=== PATIENT | female | born 1980 | race Caucasian/White ===

== ENCOUNTER 2022-09-17 18:21 | Inpatient (IN) | payer MEDICAID, SELFPAY ==
[2022-09-17 18:22] VITALS: BP 149/111; PULSE 123; RESP 17; TEMP 36.4; O2SAT 99; BMI 34.2
--- NOTE | 2022-09-17 19:19 | EDS_ITS ---
HPI History of Present Illness Chief Complaint: Shortness of Breath Detail of Chief Complaint: Cough, shortness of breath, dyspnea on exertion URI symptoms Informant: patient and other (Nurse practitioner from urgent care) Onset/Context/Timing Onset: Weeks (Onset September 06, 2022) Context: Sudden Onset Timing: Continuous and Waxes and wanes Quality: My health gesturing, cough which is essentially nonproductive, dyspnea on e Location: Respiratory Current Severity: Moderate Maximum Severity: Severe Worsened by: Activity Relieved by: Nothing Associated Symptoms Associated Symptoms: Palpitations Narrative Narrative: Patient is a 42-year-old woman who is on no hormonal therapy with no history of PE or DVT who presents with rapid heart rate, cough, shortness of breath at rest and with activity. Her cough is essentially nonproductive. When she does produce sputum it is creamy white. She states she works at the [employer]. 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 She had a negative COVID test on September 14. She complains of mild headache. She denies photophobia, neck pain or neck stiffness. She denies ear pain or discharge from her ears. She denies change in voice. She denies chest discomfort. She denies leg pain, swelling discoloration. She has no risk She denies nausea, vomiting or diarrhea. She denies dysuria, frequency, urgency or hematuria. Prior similar symptoms: Yes Recent Illness/Hospitalization: Yes PFSH PFSH Medical History no medical history no medical history (Depression) Allergy/AdvReac Type Severity Reaction Status Date / Time acetaminophen [From Percocet] Allergy Itching Verified 09/17/22 18:22 lisinopril Allergy Rash Verified 09/17/22 18:22 oxycodone [From Percocet] Allergy Itching Verified 09/17/22 18:22 Social History (Updated 09/17/22 @ 19:[address] Reggie Hoffmann MD) household members: none Smoking Status: Current every day smoker tobacco type: cigarettes substance use type: does not use ROS ROS ED Constitutional Constitutional ED: Denies chills, fever(s), subjective or sweats Eyes Eyes: Denies blurry vision, change in vision or diplopia ENT ENT ED: Reports rhinorrhea; Denies ear pain or sore throat Cardiovascular Cardiovascular: Reports racing heartbeat; Denies chest pain, orthopnea, palpitations or paroxysmal nocturnal dyspnea Respiratory/Chest Respiratory/Chest: Reports cough, dyspnea and dyspnea on exertion; Denies orthopnea or paroxysmal nocturnal dyspnea Gastrointestinal Gastrointestinal: Denies abdominal pain, nausea or vomiting Genitourinary Genitourinary ED: Denies dysuria, hematuria or urinary frequency Musculoskeletal Musculoskeletal: Denies arthralgias, back pain, myalgias or neck pain Integumentary Denies abscess, Abrasions or rash Neurologic Neurologic: Reports headache(s) and weakness; Denies paresthesias Endocrine Endocrinology: Denies cold intolerance or heat intolerance Hematologic/Lymphatic Hematologic/Lymphatic: Reports systems reviewed and no addt'l complaints, except as documented EXAM Physical Exam Const Vital Signs: 09/17/22 18:22 09/17/22 20:51 09/17/22 20:56 Temperature 97.5 F L 98.2 F Temperature Source Temporal Temporal Pulse Rate 123 H 106 H Respiratory Rate 17 15 15 Blood Pressure 149/111 H 152/91 H Blood Pressure Mean 123 111 Pulse Ox 99 97 Oxygen Delivery Method Room Air Room Air 09/17/22 21:17 Temperature 98.5 F Temperature Source Temporal Pulse Rate 74 Respiratory Rate 15 Blood Pressure 147/103 H Blood Pressure Mean 117 Pulse Ox 99 Oxygen Delivery Method Room Air Positive well nourished, well developed and obese Constitutional Narrative: Patient is tachypneic at rest and breathing much more rapidly than 7 times times a minute. She does not appear well. General Appearance ED: well developed and pallor; Negative for cyanotic, diaphoretic or NAD Nutritional Appearance: obese HEENT Reports dry mucous membranes HEENT Narrative: Head is atraumatic normocephalic. TMs normal. Nares patent. Posterior pharynx out erythema or exudate. Uvula is midline. Mouth ED: Yes dry mucous membranes Mouth: dry mucous membranes Eyes PERRL and EOMs intact bilaterally General Eye ED: Negative for pale conjunctiva or scleral icterus Neck no lymphadenopathy, supple and no JVD Neck Narrative: Trachea is midline. There is no inspiratory inspiratory or expiratory stridor Chest Wall inspection of chest normal and palpation of chest normal Resp No normal respiratory effort and No clear to auscultation bilaterally Auscultation: rales bilateral base and wheezes expiratory wheezes and throughout Cardio regular rhythm, S1 normal heart sound, S2 normal heart sound and no murmurs Rate: tachycardic GI normal to inspection, nondistended, normoactive bowel sounds, non-tender, non- distended and no masses; Negative for hepatosplenomegaly Palpation: soft Back/Spine no CVA tenderness Cervical Spine: Negative for cervical spine tenderness Thoracic Spine / Upper Back: Negative for thoracic spinal tenderness Lumbar Spine / Lower Back: Negative for lumbar spinal tenderness Extremity normal to inspection General Extremety ED: Negative for edema or tenderness General Extremity: Negative for edema Neuro oriented x3, CN's II-XII intact bilaterally and no sensory deficits noted Sensorium / Orientation: alert Motor Exam: strength 5/5 throughout Psych mental status grossly normal Skin no rashes or lesions noted, no wounds and skin turgor normal General Skin Exam: pallor; Negative for elasticity normal or jaundice MDM MDM MDM Narrative Medical decision making narrative: Suspect this is due to respiratory infection. If patient's symptoms do not improve with treatment and D-dimer is elevated would consider CTA. The D-dimer may be elevated due to infectious process as well. Because of limited ICU beds we will treat her DKA with subcu insulin and IV fluids. History & Record Review Discussion w/independent historian: Patient and Other Additional record(s) reviewed:: Prior outpatient record ([facility] from [facility] were reviewed. Concern by practitioners PE.) Lab Data Attestation: I reviewed the patient's lab results. Lab results narrative: White count is elevated 17.2 thousand with shift. H&H is normal. Comprehensive metabolic panel reveals pseudohyponatremia with a sodium 128. Glucose is 457 with a CO2 of 13 and anion gap of 13. Creatinine slightly evaded 1.1. Patient's DKA. Serum ketone was obtained as well as assess and VBG. Lactate was normal at 1.2. Serum ketones are moderate. D-dimer is elevated. Suspect this is due to her pneumonia and infectious process and did not pursue CTA. UA is remarkable for glucose and ketones. There is no evidence of infection. Labs: Laboratory Results - last 24 hr 09/17/22 09/17/22 09/17/22 19:23 19:23 19: WBC 17.2 H RBC 5.36 Hgb 15.0 Hct 46.5 MCV 86.8 MCH 28.0 MCHC 32.3 RDW Std Deviation 41.1 RDW Coeff of Alcira 13.2 Plt Count 359 MPV 11.9 Immature Gran % (Auto) 2.600 H Neut % (Auto) 80.0 H Lymph % (Auto) 8.6 L [place] % (Auto) 7.7 Eos % (Auto) 0.2 Baso % (Auto) 0.9 Absolute Neuts (auto) 13.8 H Absolute Lymphs (auto) 1.48 Nucleated RBC % 0 D-Dimer Quant (PE/DVT) 1.39 H* Sodium 128 L Potassium 4.2 Chloride 102 Carbon Dioxide 13.0 L Anion Gap 13 BUN 18 Creatinine 1.10 H Estim Creat Clear Calc 64.79 Est GFR (MDRD) Af Amer 70 Est GFR (MDRD) Non-Af 58 L BUN/Creatinine Ratio 16.4 Glucose 457 H* Lactic Acid Calcium 9.7 Total Bilirubin 0.60 Direct Bilirubin 0.16 AST 5 L ALT 18 Alkaline Phosphatase 125 H Total Protein 8.4 H Albumin 3.2 Globulin 5.2 H Urine Color Urine Clarity Urine pH Ur Specific [place] Urine Protein Urine Glucose (UA) Urine Ketones Urine Occult Blood Urine Nitrite Urine Bilirubin Urine Urobilinogen Ur Leukocyte Esterase Urine RBC Urine WBC Ur Squamous Epith Cells Urine Bacteria Urine Mucus Acetone Level 09/17/22 09/17/22 09/17/22 19:23 19:23 21:22 WBC RBC Hgb Hct MCV MCH MCHC RDW Std Deviation RDW Coeff of Alcira Plt Count MPV Immature Gran % (Auto) Neut % (Auto) Lymph % (Auto) [place] % (Auto) Eos % (Auto) Baso % (Auto) Absolute Neuts (auto) Absolute Lymphs (auto) Nucleated RBC % D-Dimer Quant (PE/DVT) Sodium Potassium Chloride Carbon Dioxide Anion Gap BUN Creatinine Estim Creat Clear Calc Est GFR (MDRD) Af Amer Est GFR (MDRD) Non-Af BUN/Creatinine Ratio Glucose Lactic Acid 1.2 Calcium Total Bilirubin Direct Bilirubin AST ALT Alkaline Phosphatase Total Protein Albumin Globulin Urine Color Yellow Urine Clarity Clear Urine pH 5.0 Ur Specific [place] 1.025 Urine Protein 30 H Urine Glucose (UA) 1000 H Urine Ketones 150 A* Urine Occult Blood 25 H Urine Nitrite Negative Urine Bilirubin Negative Urine Urobilinogen Normal Ur Leukocyte Esterase Negative Urine RBC 0 SEEN Urine WBC 0 SEEN Ur Squamous Epith Cells 0 SEEN Urine Bacteria 0 SEEN Urine Mucus 0 SEEN Acetone Level MODERATE H ABG Data Attestation: I personally reviewed and interpreted this ABG as follows: Interpretation: VBG reveals a metabolic acidosis consistent with DKA. ABG results: ABG 09/17/22 20:57 Specimen Type GLORIA VBG pH 7.19 L* VBG pO2 36 VBG HCO3 10 L VBG Total CO2 11 L VBG O2 Sat (Calc) 58 VBG Base Excess -18 L POC Mix VBG pCO2 Pt Tmp 25.2 L O2 Delivery Device Room Air Crit Call To/Read Back Yes Blood Gas Notified Whom Shun Blood Gas Notified Time 20:58:27 Radiography Chest X-Ray - ED: 1 View and Read by ED Physician (X-ray reveals right middle lobe infiltrate with obscuring of the right heart border. There is no cardiomegaly. Osseous structures are unremarkable. Since there is no evidence of endorgan dysfunction blood cultures were not obtained prior to starting antibiotics. She was started on Rocephin and a) Diagnostic Testing: Clinical Impression(s) from Imaging Studies Chest X-Ray 09/17/22 19:37 IMPRESSION: Peribronchial cuffing which can be seen in small airways disease such as asthma or bronchiolitis. Electronically Signed: Konrad Ayala MD at 21:06 EDT , EKG Initial EKG: Attestation: I personally reviewed and interpreted this EKG as follows: Interpretation: Sinus Tachycardia (Rate is 107. There is decreased anterior force. [place] interval is 148 ms. Cures duration 76 ms. QT duration 274 ms. [place] is normal. There is no acute ischemic changes.) Critical Care Time Critical Care Time: Yes Critical care time (excluding procedures): 30-74 minutes (33), Including time spent: (History, physical, documentation, review of laboratory studies/interpretation and initiation of therapy), Discussing w/Patient &/or Family/Kindergartner (Patient informed that her insurance will not pay for her diabetic medication.), Discussing w/Consultants (Practitioner from urgent care and hospitalist) and Arranging Admission or Transfer Discharge Plan Triage Chief Complaint: Shortness of Breath ED Provider: Reggie Hoffmann Dx/Rx/DC Orders Clinical Impression: DKA, type 2, Right middle lobe pneumonia, SIRS (systemic inflammatory response syndrome), Acute hyponatremia, Elevated serum creatinine
[2022-09-17 19:34] LABS: Absolute Lymphocyte Count 1.48 X10^3/uL (0.83-4.51); Absolute Neutrophil Count 13.8 X10^3/uL (2.0-7.7); Basophil# 0.16 X10^3/uL; Basophil% 0.9 % (0-1); Eosinophil# 0.03 X10^3/uL; Eosinophils% 0.2 % (0-5); Hematocrit 46.5 % (37-47); Lymphocyte # 1.48 X10^3/ul (0.83-4.51); Lymphocyte % 8.6 % (19-41); Mean Corp Hgb Conc 32.3 g/dL (32-36); Mean Corpuscular Volume 86.8 fL (81-99); Mean Platelet Vol. 11.9 fl (6.2-12.0); Monocyte# 1.32 X10^3/uL; Monocyte% 7.7 % (0-10); NRBC Flagged by Analyzer 0 % (0-5); Neutrophil # 13.79 X10^3/uL (2.7-7.7); Platelet Count 359 K/mm3 (150-450); RBC Distribution Width CV 13.2 % (11.6-14.6); RBC Distribution Width SD 41.1 fl (35.1-43.9); Red Blood Count 5.36 M/mm3 (4.2-5.4); White Blood Count 17.2 K/mm3 (4.4-11.0)
--- NOTE | 2022-09-17 19:37 | RAD_ITS ---
INDICATION: Dyspnea, EXAMINATION/TECHNIQUE: X-RAY - XR Chest 2 Views COMPARISON: None. FINDINGS: There is mild peribronchial cuffing. The cardiomediastinal silhouette is unremarkable. No pleural effusion or pneumothorax. No acute osseous abnormalities. RAD/Chest PA and Lateral IMPRESSION: Peribronchial cuffing which can be seen in small airways disease such as asthma or bronchiolitis. Electronically Signed: Konrad Ayala MD at 21:06 EDT ,
[2022-09-17 19:59] LABS: Lactic Acid 1.2 mmol/L (0.4-1.9)
[2022-09-17 20:03] LABS: AST(SGOT) 5 U/L (15-37); Alanine Aminotransfer ALT/SGPT 18 U/L (13-56); Albumin, Serum 3.2 g/dL (3.2-5.0); Alkaline Phosphatase 125 U/L (45-117); Anion Gap 13 (5-15); BUN 18 mg/dL (7-18); BUN/Creat Ratio 16.4 RATIO (10-20); Bilirubin, Direct 0.16 mg/dL (0.00-0.30); Calcium,Total 9.7 mg/dL (8.5-10.1); Chloride 102 mmol/L (98-107); EST Glomerular Filtration Rate 58 mL/min (>60); Est Glom Filt Rate - Afr Amer 70 mL/min (>60); Estimated Creatinine Clearance 64.79 ml/min; Globulin 5.2 g/dL (2.2-4.2); Glucose 457 mg/dL (74-106); Potassium 4.2 mmol/L (3.5-5.1); Protein, Total 8.4 g/dL (6.4-8.2); Sodium Level 128 mmol/L (136-145)
[2022-09-17 20:05] LABS: D-Dimer Quantitative (DVT/PE) 1.39 FEU/ug/m (0.27-0.49)
[2022-09-17] MEDS: 0.9% Normal Saline 1,000 ML 999 ML IV ×2 (20:50→22:30)
[2022-09-17 20:51] VITALS: BP 152/91; PULSE 106; RESP 15; TEMP 36.8; O2SAT 97
[2022-09-17 20:56] VITALS: RESP 15
[2022-09-17 21:01] LABS: Blood Gas Specimen Type VEN; O2 Delivery Device Room Air; VBG BASE EXCESS -18 mmol/L (-1.0-3.5); VBG Bicarbonate 10 mmol/L (22-26); VBG PO2 36 mmHg (25-40); VBG SO2 58 % (50-70); VBG TCO2 11 mmol/L (23-33); VBG pCO2 25.2 mmHg (41-51); VBG pH 7.19 (7.32-7.42)
[2022-09-17] MEDS: Mag Hydrox/Al Hydrox/Simeth 30 ML UDC PO (21:14)
[2022-09-17] MEDS: Insulin Lispro 100 UNIT/ML INSULN.PEN 10 UNIT SC (21:14)
[2022-09-17 21:17] VITALS: BP 147/103; PULSE 74; RESP 15; TEMP 36.9; O2SAT 99
[2022-09-17 21:24] LABS: Bacteria 0 SEEN /hpf (None Seen); Mucous, Urine 0 SEEN /hpf (<or=2+); Red Blood Cells-Urine 0 SEEN /hpf (0-5); Squamous Epithelial Cells - UA 0 SEEN /hpf (5-10); White Blood Cells 0 SEEN /hpf (0-5)
[2022-09-17 21:25] LABS: Color, Urine Yellow (Yellow); Glucose, Dipstick 1000 mg/dl (Normal); Leukocyte Esterase-Dipstick Negative /ul (Negative); Nitrite-Dipstick Negative (Negative); Occult Blood-Urine 25 /ul (Negative); Protein-Dipstick 30 mg/dl (Negative); Specific Gravity, Urine 1.025 (1.002-1.030); Urine Bilirubin Dipstick Negative (Negative); Urine Clarity Clear (Clear); Urine Urobilinogen Normal (Normal)
[2022-09-17 21:27] LABS: Ketone-Dipstick 150 mg/dl (Negative)
--- NOTE | 2022-09-17 21:54 | PCM.HP.STD ---
HPI - General General Date of Admission: 09/17/22 Date of Service: 09/17/22 Chief Complaint: Cough and shortness of breath. HPI Narrative ELSI BERGMAN, is a 42 F with a significant history of type 2 diabetes who works at [employer] longterm presenting with shortness of breath and a cough that started about September 05, 2022. Aside patient the community at the longterm had similar symptoms. Patient got better only for his symptoms to worsened 3 days before presentation. Associated with her symptoms is heartburn, polyuria, polydipsia and anorexia. She has fatigue but it is unchanged from her baseline. She denies any nausea or vomiting except that at the emergency department she was given GI cocktail that made her transiently nauseous. At the emergency department patient blood glucose was found to be severely high. Of note because of insurance issues patient has not been able to fill her Trulicity for at least 2 months. Patient went to the urgent care because of concern for possible PE she was sent to the emergency department. [facility] Medical History Diabetes mellitus, type 2 Medical History no medical history Allergy/AdvReac Type Severity Reaction Status Date / Time acetaminophen [From Percocet] Allergy Itching Verified 09/17/22 18:22 lisinopril Allergy Rash Verified 09/17/22 18:22 oxycodone [From Percocet] Allergy Itching Verified 09/17/22 18:22 Family History Other Anxiety Depression Heart disease Obsessive compulsive disorder Schizophrenia Surgical History History of appendectomy History of cholecystectomy Social History household members: none Smoking Status: Current every day smoker tobacco type: cigarettes substance use type: does not use ROS ROS Narrative Pertinent positives and pertinent negatives as noted in HPI. All other systems were reviewed and are negative Vital Signs Vital Signs Vital Signs: 09/17/22 18:22 09/17/22 20:51 09/17/22 20:56 Temperature 97.5 F L 98.2 F Temperature Source Temporal Temporal Pulse Rate 123 H 106 H Respiratory Rate 17 15 15 Blood Pressure 149/111 H 152/91 H Blood Pressure Mean 123 111 Pulse Ox 99 97 Oxygen Delivery Method Room Air Room Air 09/17/22 21:17 Temperature 98.5 F Temperature Source Temporal Pulse Rate 74 Respiratory Rate 15 Blood Pressure 147/103 H Blood Pressure Mean 117 Pulse Ox 99 Oxygen Delivery Method Room Air Weight Weight: 98.968 kg Body Mass Index (BMI) 34.2 Physical Exam Narrative Physical exam: General: Well-nourished, well-developed. Head: Normocephalic, atraumatic, no tenderness Eyes: Vision is grossly intact. EOMI ENT, no trauma, moist mucous membranes, no rhinorrhea Neck: Nontender, No thyromegaly. CVS: Regular rate and rhythm. S1-S2 present. No murmur, gallop or rub. Respiratory : Rales at right posterior middle to lower lung flood, chest wall nontender Abdomen: Soft, nontender, nondistended, normal bowel sounds, no masses : Deferred Back: Nontender, no CVA tenderness, no midline spinal tenderness, deformities, step-offs Extremities: Nontender full range of motion, no trauma Skin: Normal color, no trauma, abrasions Neuro: Alert, oriented, cranial nerves II through XII grossly intact. Psychiatry: Normal mood. Normal affect. Not depressed. Not anxious. Results Lab / Micro Data Result Diagrams: 09/17/22 19:23 09/18/22 02:40 Labs: Laboratory Results - last 24 hr 09/17/22 19:23: WBC 17.2 H, RBC 5.36, Hgb 15.0, Hct 46.5, MCV 86.8, MCH 28.0, MCHC 32.3, RDW Std Deviation 41.1, RDW Coeff of Alcira 13.2, Plt Count 359, MPV 11.9, Immature Gran % (Auto) 2.600 H, Neut % (Auto) 80.0 H, Lymph % (Auto) 8.6 L, [place] % (Auto) 7.7, Eos % (Auto) 0.2, Baso % (Auto) 0.9, Absolute Neuts (auto) 13.8 H, Absolute Lymphs (auto) 1.48, Nucleated RBC % 0 09/17/22 19:23: D-Dimer Quant (PE/DVT) 1.39 H* 09/17/22 19:23: Sodium 128 L, Potassium 4.2, Chloride 102, Carbon Dioxide 13.0 L, Anion Gap 13, BUN 18, Creatinine 1.10 H, Estim Creat Clear Calc 64.79, Est GFR (MDRD) Af Amer 70, Est GFR (MDRD) Non-Af 58 L, BUN/Creatinine Ratio 16.4, Glucose 457 H*, Calcium 9.7, Total Bilirubin 0.60, Direct Bilirubin 0.16, AST 5 L, ALT 18, Alkaline Phosphatase 125 H, Total Protein 8.4 H, Albumin 3.2, Globulin 5.2 H 09/17/22 19:23: Lactic Acid 1.2 09/17/22 19:23: Acetone Level MODERATE H 09/17/22 21:22: Urine Color Yellow, Urine Clarity Clear, Urine pH 5.0, Ur Specific [place] 1.025, Urine Protein 30 H, Urine Glucose (UA) 1000 H, Urine Ketones 150 A*, Urine Occult Blood 25 H, Urine Nitrite Negative, Urine Bilirubin Negative, Urine Urobilinogen Normal, Ur Leukocyte Esterase Negative, Urine RBC 0 SEEN, Urine WBC 0 SEEN, Ur Squamous Epith Cells 0 SEEN, Urine Bacteria 0 SEEN, Urine Mucus 0 SEEN ABG Data ABG results: ABG 09/17/22 20:57 Specimen Type GLORIA VBG pH 7.19 L* VBG pO2 36 VBG HCO3 10 L VBG Total CO2 11 L VBG O2 Sat (Calc) 58 VBG Base Excess -18 L POC Mix VBG pCO2 Pt Tmp 25.2 L O2 Delivery Device Room Air Crit Call To/Read Back Yes Blood Gas Notified Whom Hoffmann Blood Gas Notified Time 20:58:27 Radiology Impression Chest X-Ray 09/17/22 19:37 IMPRESSION: Peribronchial cuffing which can be seen in small airways disease such as asthma or bronchiolitis. Electronically Signed: Konrad Ayala MD at 21:06 EDT , Assessment & Plan Assessment/Plan (1) DKA, type 2: (2) Acute hyponatremia: (3) Elevated serum creatinine: (4) Right middle lobe pneumonia: PLAN: Plan DKA Serum glucose of 457 on presentation. acetone level: Moderate Anion gap of 13, normal on presentation. PH on VBG 7.19 Sodium 128, . Corrected sodium 134 Insulin drip ordered Completed IV bolus of normal saline and normal saline infusion Because of potassium of 4.2 will start patient on half-normal saline with potassium. BMP every 4 hours to calculate anion gap. N.p.o. for now Admitted to ICU Check A1C Right middle lobe pneumonia Lactic acid: 1.2 Blood culture ?2 is pending Chest x-ray: Impression by radiologist:Peribronchial cuffing which can be seen in small airways disease such as asthma or bronchiolitis. Upon my personal interpretation right middle interpretation right middle lobe with small opacity. Antibiotics: Azithromycin and ceftriaxone ordered. Legionella antigen screen and Strep antigen ordered White count of 17,200. Bandemia of 2.6 but since. Trend. DVT prophylaxis: Subcutaneous Lovenox ordered. Charges/Coding Visit Charges Inpatient E&M: 97578 Init Hosp L3
[2022-09-17 22:17] VITALS: BP 145/85; PULSE 74; RESP 14; TEMP 36.4; O2SAT 98
[2022-09-17 22:45] LABS: Bedside Glucose 415 mg/dL (74-106)
[2022-09-18] VITALS (18 sets, daily range): BP systolic 113–164; BP diastolic 64–95; PULSE 87–107; RESP 16–20; TEMP 36.2–37; O2SAT 97–100; BMI 34.8; BMI 34.1
[2022-09-18] MEDS: KCL 20MEQ in 0.45%NS 20 MEQ/1,000 ML IV.SOLN. 250 MEQ IV (00:32)
[2022-09-18 00:42] LABS: Hemoglobin A1c 12.9 % (3.8-5.6)
[2022-09-18 00:52] LABS: Anion Gap 12 (5-15); BUN 15 mg/dL (7-18); BUN/Creat Ratio 16.1 RATIO (10-20); Calcium,Total 8.4 mg/dL (8.5-10.1); Chloride 111 mmol/L (98-107); Creatinine, Serum 0.93 mg/dL (0.55-1.02); EST Glomerular Filtration Rate 70 mL/min (>60); Est Glom Filt Rate - Afr Amer 85 mL/min (>60); Estimated Creatinine Clearance 76.63 ml/min; Glucose 322 mg/dL (74-106); Potassium 3.4 mmol/L (3.5-5.1); Sodium Level 134 mmol/L (136-145)
[2022-09-18 01:23] LABS: Osmolality, Serum 304 mOsm/KG (275-295)
[2022-09-18 03:06] LABS: Anion Gap 8 (5-15); BUN 13 mg/dL (7-18); BUN/Creat Ratio 15.2 RATIO (10-20); Calcium,Total 8.5 mg/dL (8.5-10.1); Chloride 114 mmol/L (98-107); Creatinine, Serum 0.85 mg/dL (0.55-1.02); EST Glomerular Filtration Rate 78 mL/min (>60); Est Glom Filt Rate - Afr Amer 94 mL/min (>60); Estimated Creatinine Clearance 83.84 ml/min; Glucose 154 mg/dL (74-106); Potassium 3.2 mmol/L (3.5-5.1); Sodium Level 135 mmol/L (136-145)
[2022-09-18] MEDS: KCL 20MEQ in D5.45NS 20 MEQ/1,000 ML IV.SOLN. 150 MEQ IV (03:17)
[2022-09-18] MEDS: Potassium Chloride 10mEq/100mL 10 MEQ/100 ML IV.SOLN. 100 MEQ IV BOLUS ×4 (05:15→08:27)
[2022-09-18] MEDS: Rizatriptan Benzoate 5 MG Tablet PO (06:21)
[2022-09-18 06:33] LABS: Absolute Neutrophil Count 12.1 X10^3/uL (2.0-7.7); Basophil% 0.6 % (0-1); Eosinophil# 0.13 X10^3/uL; Eosinophils% 0.8 % (0-5); Hemoglobin 12.2 g/dL (12.0-15.0); Lymphocyte % 11.2 % (19-41); Mean Corpuscular Hgb 28.4 pg (27.0-32.0); Mean Corpuscular Volume 86.2 fL (81-99); Mean Platelet Vol. 11.3 fl (6.2-12.0); Monocyte# 1.66 X10^3/uL; Monocyte% 10.3 % (0-10); NRBC Flagged by Analyzer 0 % (0-5); Neutrophil # 12.11 X10^3/uL (2.7-7.7); Neutrophil % 75.1 % (47-70); POSITIVE DIFFERENTIAL YES; Platelet Count 313 K/mm3 (150-450); RBC Distribution Width CV 13.2 % (11.6-14.6); RBC Distribution Width SD 41.1 fl (35.1-43.9); Red Blood Count 4.29 M/mm3 (4.2-5.4); White Blood Count 16.1 K/mm3 (4.4-11.0)
[2022-09-18 06:35] LABS: Differential Indicated SCAN CRITERIA MET
[2022-09-18 06:46] LABS: Anion Gap 8 (5-15); BUN 12 mg/dL (7-18); Calcium,Total 8.2 mg/dL (8.5-10.1); Chloride 114 mmol/L (98-107); Creatinine, Serum 0.75 mg/dL (0.55-1.02); EST Glomerular Filtration Rate 90 mL/min (>60); Est Glom Filt Rate - Afr Amer 109 mL/min (>60); Estimated Creatinine Clearance 95.02 ml/min; Glucose 205 mg/dL (74-106); Potassium 3.6 mmol/L (3.5-5.1); Sodium Level 135 mmol/L (136-145)
[2022-09-18 06:47] LABS: Differential Comment SCANNED
[2022-09-18 08:35] LABS: Bedside Glucose 133 mg/dL (74-106)
[2022-09-18 08:35] LABS: Bedside Glucose 187 mg/dL (74-106)
[2022-09-18 08:35] LABS: Bedside Glucose 169 mg/dL (74-106)
[2022-09-18 08:35] LABS: Bedside Glucose 306 mg/dL (74-106)
[2022-09-18 08:35] LABS: Bedside Glucose 239 mg/dL (74-106)
[2022-09-18 08:35] LABS: Bedside Glucose 135 mg/dL (74-106)
[2022-09-18 08:35] LABS: Bedside Glucose 187 mg/dL (74-106)
[2022-09-18 08:40] LABS: Bedside Glucose 203 mg/dL (74-106)
[2022-09-18] MEDS: Insulin Lispro 100 UNIT/ML INSULN.PEN SC ×3 (10:22→21:54)
[2022-09-18] MEDS: Enoxaparin 40 MG/0.4 ML Syringe SC (10:24)
[2022-09-18 10:25] LABS: Bedside Glucose 190 mg/dL (74-106)
[2022-09-18 12:05] LABS: Bedside Glucose 195 mg/dL (74-106)
--- NOTE | 2022-09-18 12:10 | CASEMGMT ---
RN GARY Face to Face with patient for initial transition planning/care coordination assessment. RN CM introduced self and role at [facility]. Patient lying in bed, alert and oriented. Patient willing to participate in assessment and is able to answer all questions appropriately. Care providers, pharmacy, and demographics verified. Patient wishes to discharge home, denies need for home health at this time. Patient states she has no further needs or concerns at this time. CM to follow for discharge planning needs that may arise. PCP: [facility] Specialists: None Preferred Pharmacy: [facility] Insurance: [employer] Prescription Benefit: yes Living Will/HPOA: none LNOK: Living Arrangements: Patient lives with and children in a 2 story home. Patient is independent and able to ambulate stairs at home. Transportation: self, DME/HHC: Patient has glucometer with supplies at home. No previous HHC or SNF. Disposition Plan: Patient to discharge home with family support and follow-up plans in place. Ana Paula FIERRO, RN, CM
[2022-09-18] MEDS: Insulin Glargine-YFGN 100 UNIT/ML Pen 15 UNIT SC ×2 (13:03→17:02)
[2022-09-18 13:45] LABS: Anion Gap 12 (5-15); BUN 9 mg/dL (7-18); BUN/Creat Ratio 12.9 RATIO (10-20); Calcium,Total 9.2 mg/dL (8.5-10.1); Chloride 110 mmol/L (98-107); EST Glomerular Filtration Rate 98 mL/min (>60); Est Glom Filt Rate - Afr Amer 118 mL/min (>60); Estimated Creatinine Clearance 101.81 ml/min; Glucose 285 mg/dL (74-106); Potassium 3.8 mmol/L (3.5-5.1); Sodium Level 134 mmol/L (136-145)
[2022-09-18 17:20] LABS: Bedside Glucose 355 mg/dL (74-106)
--- NOTE | 2022-09-18 20:51 | PCM.PN.HOSP ---
Reason for Visit Reason for Visit: Diagnoses Type 2 diabetes mellitus with ketoacidosis without coma (09/17/22) Hypo-osmolality and hyponatremia (09/17/22) Pneumonia, unspecified organism (09/17/22) Other specified abnormal findings of blood chemistry (09/17/22) Subjective Subjective Patient was seen and examined today, she came off her insulin drip this morning, I had a long discussion with her about her diabetes. Patient has been out of [facility] for approximately 2 months, she stated her last A1c was 8.2. Patient came to the emergency room due to shortness of breath, I reviewed her chest x-ray images, I do not see an actual pneumonia and I do not believe the patient has pneumonia at this time. I have elected to stop her antibiotics and observe her. Patient was moved out of ICU and she is now on MedSurg patient. I have started her on basal insulin and insulin with each meal. Patient CBC will be repeated tomorrow, I believe her white blood cell count was elevated due to her DKA. Objective Data Objective Data Vital Signs: Vital Signs Temp Pulse Resp BP Pulse Ox O2 Del Method 98.4 F 98 18 137/94 H 99 Room Air 09/18/22 17:00 09/18/22 17:00 09/18/22 17:00 09/18/22 17:00 09/18/22 17:00 09/18/22 17:00 Oxygen Delivery Method Room Air Weight: 98.883 kg Body Mass Index (BMI) 34.1 Intake & Output: Intake and Output for Last 24 Hours 09/16/22 09/17/22 09/18/22 23:59 23:59 23:59 Intake Total 2305 / 2305 2702.25 / 2702.25 Output Total 0 / 0 Balance 2305 / 2305 2702.25 / 2702.25 Lab / Micro Data Result Diagrams: 09/19/22 05:49 09/18/22 13:00 Labs: Laboratory Results - last 24 hr 09/17/22 21:22: Urine Color Yellow, Urine Clarity Clear, Urine pH 5.0, Ur Specific [place] 1.025, Urine Protein 30 H, Urine Glucose (UA) 1000 H, Urine Ketones 150 A*, Urine Occult Blood 25 H, Urine Nitrite Negative, Urine Bilirubin Negative, Urine Urobilinogen Normal, Ur Leukocyte Esterase Negative, Urine RBC 0 SEEN, Urine WBC 0 SEEN, Ur Squamous Epith Cells 0 SEEN, Urine Bacteria 0 SEEN, Urine Mucus 0 SEEN 09/17/22 22:28: POC Glucose 415 H 09/17/22 23:40: Serum Osmolality 304 H 09/18/22 00:15: Hemoglobin A1c 12.9 H 09/18/22 00:15: Sodium 134 L, Potassium 3.4 L, Chloride 111 H, Carbon Dioxide 11.0 L, Anion Gap 12, BUN 15, Creatinine 0.93, Estim Creat Clear Calc 76.63, Est GFR (MDRD) Af Amer 85, Est GFR (MDRD) Non-Af 70, BUN/Creatinine Ratio 16.1, Glucose 322 H, Calcium 8.4 L 09/18/22 00:30: POC Glucose 306 H 09/18/22 01:30: POC Glucose 239 H 09/18/22 02:29: POC Glucose 187 H 09/18/22 02:40: Sodium 135 L, Potassium 3.2 L, Chloride 114 H, Carbon Dioxide 13.0 L, Anion Gap 8, BUN 13, Creatinine 0.85, Estim Creat Clear Calc 83.84, Est GFR (MDRD) Af Amer 94, Est GFR (MDRD) Non-Af 78, BUN/Creatinine Ratio 15.2, Glucose 154 H, Calcium 8.5 09/18/22 03:30: POC Glucose 133 H 09/18/22 04:33: POC Glucose 135 H 09/18/22 05:20: POC Glucose 169 H 09/18/22 06:25: WBC 16.1 H, RBC 4.29, Hgb 12.2, Hct 37.0, MCV 86.2, MCH 28.4, MCHC 33.0, RDW Std Deviation 41.1, RDW Coeff of Alcira 13.2, Plt Count 313, MPV 11.3, Immature Gran % (Auto) 2.000 H, Neut % (Auto) 75.1 H, Lymph % (Auto) 11.2 L, [place] % (Auto) 10.3 H, Eos % (Auto) 0.8, Baso % (Auto) 0.6, Absolute Neuts (auto) 12.1 H, Absolute Lymphs (auto) 1.80, Nucleated RBC % 0, Differential Comment SCANNED, Diff Path Review October09/18/22 06:25: Sodium 135 L, Potassium 3.6, Chloride 114 H, Carbon Dioxide 13.0 L, Anion Gap 8, BUN 12, Creatinine 0.75, Estim Creat Clear Calc 95.02, Est GFR (MDRD) Af Amer 109, Est GFR (MDRD) Non-Af 90, BUN/Creatinine Ratio 16.0, Glucose 205 H, Calcium 8.2 L 09/18/22 07:05: POC Glucose 187 H 09/18/22 08:19: POC Glucose 203 H 09/18/22 10:04: POC Glucose 190 H 09/18/22 11:44: POC Glucose 195 H 09/18/22 13:00: Sodium 134 L, Potassium 3.8, Chloride 110 H, Carbon Dioxide 12.0 L, Anion Gap 12, BUN 9, Creatinine 0.70, Estim Creat Clear Calc 101.81, Est GFR (MDRD) Af Amer 118, Est GFR (MDRD) Non-Af 98, BUN/Creatinine Ratio 12.9, Glucose 285 H, Calcium 9.2 09/18/22 16:59: POC Glucose 355 H Micro: Microbiology 09/17/22 21:24 Urine, Clean Catch Legionella Antigen - Final 09/17/22 21:24 Urine, Clean Catch Streptococcus pneumoniae Antigen (M - Final 09/18/22 00:09 Nasal Secretion SARS-CoV-2 & FLU Antigen (Rapid) - Final ABG Data ABG results: ABG 09/17/22 20:57 Specimen Type GLORIA VBG pH 7.19 L* VBG pO2 36 VBG HCO3 10 L VBG Total CO2 11 L VBG O2 Sat (Calc) 58 VBG Base Excess -18 L POC Mix VBG pCO2 Pt Tmp 25.2 L O2 Delivery Device Room Air Crit Call To/Read Back Yes Blood Gas Notified Whom Hoffmann Blood Gas Notified Time 20:58:27 Radiography Diagnostic Testing: Radiology Impression Chest X-Ray 09/17/22 19:37 IMPRESSION: Peribronchial cuffing which can be seen in small airways disease such as asthma or bronchiolitis. Electronically Signed: Konrad Ayala MD at 21:06 EDT , Physical Exam Const alert, oriented x3, no apparent distress and healthy appearing General Appearance: cooperative, well kempt and well developed Orientation / Consciousness: awake, oriented to person, oriented to place and oriented to time HEENT normocephalic and moist oral mucous membranes Eyes PERRL, EOMs intact bilaterally and conjunctivae normal Neck supple, no JVD, thyroid normal and no carotid bruits General: trachea midline Resp normal respiratory effort and clear to auscultation bilaterally Auscultation: Negative for rales, rhonchi or wheezes Cardio regular rate, regular rhythm, no murmurs, no rub and no gallops GI normal to inspection, nondistended, normoactive bowel sounds, soft to palpation, non-tender and non-distended Extremity no clubbing, cyanosis or edema Skin no rashes or lesions noted General Skin Exam: no breakdown Neuro oriented x3, CN's II-XII intact bilaterally, no focal motor deficits and no sensory deficits noted Sensorium / Orientation: awake and alert Speech: speech normal Psych affect normal Assessment & Plan Assessment/Plan (1) DKA, type 2: PLAN: Plan 1. DKA secondary to uncontrolled type 2 diabetes-continue with basal insulin as well as insulin with each meal, continue to monitor blood sugars, patient is stable for transfer to a [facility] bed #2 hypokalemia-patient was given potassium replacement, labs will be monitored Right middle lobe pneumonia was ruled out Total clinical time spent by myself addressing the patient's medical issues, reviewing all the data, and collaborating with patient's care team: 35 minutes Charges/Coding Visit Charges Inpatient E&M: 87289 Subs Hosp L2
[2022-09-18 23:51] LABS: Bedside Glucose 302 mg/dL (74-106)
[2022-09-19 03:28] VITALS: BP 132/91; PULSE 105; RESP 17; TEMP 36.9; O2SAT 99
[2022-09-19 06:52] LABS: Absolute Lymphocyte Count 1.75 X10^3/uL (0.83-4.51); Absolute Neutrophil Count 9.8 X10^3/uL (2.0-7.7); Basophil# 0.12 X10^3/uL; Basophil% 0.9 % (0-1); Eosinophil# 0.11 X10^3/uL; Eosinophils% 0.8 % (0-5); Hematocrit 40.2 % (37-47); Hemoglobin 13.1 g/dL (12.0-15.0); Lymphocyte # 1.75 X10^3/ul (0.83-4.51); Mean Corp Hgb Conc 32.6 g/dL (32-36); Mean Corpuscular Hgb 27.8 pg (27.0-32.0); Mean Corpuscular Volume 85.4 fL (81-99); Mean Platelet Vol. 11.6 fl (6.2-12.0); Monocyte# 1.25 X10^3/uL; Monocyte% 9.3 % (0-10); NRBC Flagged by Analyzer 0 % (0-5); Neutrophil # 9.83 X10^3/uL (2.7-7.7); Neutrophil % 73.3 % (47-70); Platelet Count 328 K/mm3 (150-450); RBC Distribution Width CV 13.2 % (11.6-14.6); RBC Distribution Width SD 40.9 fl (35.1-43.9); Red Blood Count 4.71 M/mm3 (4.2-5.4); White Blood Count 13.4 K/mm3 (4.4-11.0)
[2022-09-19] MEDS: Insulin Lispro 100 UNIT/ML INSULN.PEN SC ×2 (08:16→11:43)
[2022-09-19 08:20] LABS: Bedside Glucose 238 mg/dL (74-106)
--- NOTE | 2022-09-19 09:00 | RAD_ITS ---
STUDY: X-RAY CHEST REASON FOR EXAM: Female, 42 years old. Cough, shortness of breath TECHNIQUE: PA and lateral views of the chest. COMPARISON: 09/17/2022 FINDINGS: EKG leads overlie the chest The lungs are clear and expanded. There is no demonstrated pleural abnormality. Normal size heart. Normal mediastinum and wilbert. Normal visualized pulmonary arteries. Normal visualized aortic arch and descending thoracic aorta. Normal visualized thoracic spine. Normal visualized ribs, clavicles, and shoulders. There is no demonstrated abnormality of the visualized soft tissue structures of the upper abdomen. RAD/Chest PA and Lateral IMPRESSION: Normal x-ray examination of the chest. Electronically Signed: Rob Guadalupe MD at 8:59 EDT ,
[2022-09-19 09:47] VITALS: O2SAT 98
[2022-09-19 10:00] VITALS: BP 130/83; PULSE 104; RESP 18; TEMP 36.8; O2SAT 98
[2022-09-19] MEDS: Insulin Glargine-YFGN 100 UNIT/ML Pen 30 UNIT SC (10:30)
[2022-09-19] MEDS: Enoxaparin 40 MG/0.4 ML Syringe SC (10:31)
[2022-09-19 11:10] VITALS: BMI 33.8
--- NOTE | 2022-09-19 11:39 | DCINST_ITS ---
Discharge Instructions Diet Discharge Diet: 1800 Calorie Control Diet Activity Discharge Activity: Return to Normal Activity Weight Bearing Status: Full weight bearing Follow Up Care Test Results: Test results from this visit will be discussed in further detail at your follow- up appointment, if applicable. Discharge Plan Admission Admit Date/Time: 09/17/22 21:59 Primary Reason for Your Visit: DKA, uncontrolled type 2 diabetes Attending Provider: Armando Alcantara Consulting Providers: Wayne Roman Instructions Additional Instructions / Restrictions: And using Debrox ear filter screen cleaner, apply several drops to each ear canal and weight 30 minutes and flush with bulb syringe Follow-up with your family practitioner within 2 weeks, be sure to chart your blood sugars and bring them in with you for your visit, I recommend checking your blood sugars 3 times a day before meals Discharge Orders/Prescriptions Prescriptions: New insulin glargine-yfgn 100 unit/mL (3 mL) Insulin Pen 35 unit subcut BIDCM Qty: 15 0RF insulin lispro [Humalog KwikPen Insulin] 100 unit/mL Insulin Pen 8 unit subcut BID Qty: 15 0RF Protocol: 5. Sliding Scale Insulin High Dosing Condition: 150-209 mg/dl = 3 units Condition: 210-259 mg/dl = 6 units Condition: 260-324 mg/dl = 9 units Condition: 325-374 mg/dl = 12 units Condition: 375-409 mg/dl = 14 units Condition: 410-449 mg/dl = 16 units Condition: Greater than 449 call physician Protocol Text: - Use for Total Daily Dose of Insulin 81-120 units - Very insulin resistant or septic patients HIGH DOSING ALGORITHM Rx Instructions: with breakfast and dinner metformin 500 mg tablet 500 mg PO BID Qty: 60 0RF (DME) pen needle, diabetic 31 gauge x 1/3 needle See Rx Instructions .Route Qty: 100 0RF Rx Instructions: As directed Disposition Disposition (needs filled in before D/C Order can be placed): Home, Self Care
--- NOTE | 2022-09-19 11:55 | PCM.DC.SUM ---
Providers Date of Admission: 09/17/22 Date of Discharge: 09/19/22 Reason For Visit: DKA, PNEUMONIA Diagnosis Discharge Diagnosis (1) DKA, type 2: Status: Acute Code(s): E11.10 - Type 2 diabetes mellitus with ketoacidosis without coma Plan 1. DKA secondary to uncontrolled type 2 diabetes-continue with basal insulin as well as insulin with each meal, continue to monitor blood sugars, patient is stable for transfer to a [facility] bed #2 hypokalemia-patient was given potassium replacement, labs will be monitored Right middle lobe pneumonia was ruled out Total clinical time spent by myself addressing the patient's medical issues, reviewing all the data, and collaborating with patient's care team: 35 minutes Medications at Discharge Home Medications insulin glargine-yfgn 100 unit/mL (3 mL) subcutaneous pen 35 unit (0.35 mL) subcut BIDCM #15 mL 09/19/22 insulin lispro 100 unit/mL subcutaneous pen (Humalog KwikPen (U-100) Insulin) 8 unit subcut BID #15 mL 09/19/22 metformin 500 mg tablet 500 mg PO BID #60 tabs 09/19/22 pen needle, diabetic 31 gauge x 1/3 #100 ea 09/19/22 Hospital Course Operations None Procedures None Summary of Care Provided Minutes Spent on Discharge: 31 Hospital Course: Patient was seen in the emergency room at [facility] for chief complaint of cough and shortness of breath, she was a known type II diabetic. Work-up in the emergency room revealed the patient to have a DKA, there was a question that she could have an area of pneumonia and she was given IV antibiotics and admitted to ICU. She was placed on insulin drip, this is able to be weaned off without difficulty and this examiner did not feel she had an actual pneumonia. Patient was transferred to PCU and her blood sugars were monitored and her insulin regimen was adjusted. On 09/19/2022, patient was seen and examined: On examination she appeared in good health and spirits, she does not appear to be in any distress. Vital signs as documented. Skin warm and dry and without overt rashes. Neck without JVD, thyroid appears normal, trachea is midline, neck is supple. Lungs clear, normal air movement was noted. Heart exam notable for regular rhythm, normal sounds and absence of murmurs, rubs or gallops. Abdomen unremarkable and without evidence of organomegaly, masses, or abdominal aortic enlargement, bowel sounds are present in all 4 quadrants, no abdominal tenderness was noted. Extremities nonedematous, no cyanosis was noted, no clubbing was noted. Neuro: Cranial nerves II through XII are grossly intact, no focal motor deficits were noted, sensation to light touch and pinprick is intact, motor exam 5/5 throughout. Psych: Patient is alert and oriented x3, she does not appear anxious or depressed, she does not appear agitated. Patient was felt to be stable for discharge on 09/19/2022. Weight / BMI Weight Weight: 98.1 kg Body Mass Index (BMI) 33.8 ABG / Lab / Microbiology Data Result Diagrams: 09/19/22 05:49 09/18/22 13:00 Laboratory: Laboratory Results - last 24 hr 09/18/22 11:44: POC Glucose 195 H 09/18/22 13:00: Sodium 134 L, Potassium 3.8, Chloride 110 H, Carbon Dioxide 12.0 L, Anion Gap 12, BUN 9, Creatinine 0.70, Estim Creat Clear Calc 101.81, Est GFR (MDRD) Af Amer 118, Est GFR (MDRD) Non-Af 98, BUN/Creatinine Ratio 12.9, Glucose 285 H, Calcium 9.2 09/18/22 16:59: POC Glucose 355 H 09/18/22 21:52: POC Glucose 302 H 09/19/22 05:49: WBC 13.4 H, RBC 4.71, Hgb 13.1, Hct 40.2, MCV 85.4, MCH 27.8, MCHC 32.6, RDW Std Deviation 40.9, RDW Coeff of Alcira 13.2, Plt Count 328, MPV 11.6, Immature Gran % (Auto) 2.700 H, Neut % (Auto) 73.3 H, Lymph % (Auto) 13.0 L, [place] % (Auto) 9.3, Eos % (Auto) 0.8, Baso % (Auto) 0.9, Absolute Neuts (auto) 9.8 H, Absolute Lymphs (auto) 1.75, Nucleated RBC % 0 09/19/22 07:58: POC Glucose 238 H Microbiology: Microbiology 09/17/22 21:24 Urine, Clean Catch Legionella Antigen - Final 09/17/22 21:24 Urine, Clean Catch Streptococcus pneumoniae Antigen (M - Final 09/18/22 00:09 Nasal Secretion SARS-CoV-2 & FLU Antigen (Rapid) - Final Radiography Diagnostic Testing: Radiology Impression Chest X-Ray 09/19/22 09:00 IMPRESSION: Normal x-ray examination of the chest. Electronically Signed: Rob Guadalupe MD at 8:59 EDT Reading Location ID and State: [facility] / [place] , Service support , D/C Instructions Discharge Diet: 1800 Calorie Control Diet Weight Bearing Status: Full weight bearing Meaningful Use Info Meaningful Use Diagnoses (Choose all that apply): None applicable Discharge Plan Admission Admit Date/Time: 09/17/22 21:59 Primary Reason for Your Visit: DKA, uncontrolled type 2 diabetes Attending Provider: Armando Alcantara Consulting Providers: Wayne Roman Instructions Additional Instructions / Restrictions: And using Debrox ear condenser cleaner, apply several drops to each ear canal and weight 30 minutes and flush with bulb syringe Follow-up with your family practitioner within 2 weeks, be sure to chart your blood sugars and bring them in with you for your visit, I recommend checking your blood sugars 3 times a day before meals Discharge Orders/Prescriptions Prescriptions: New insulin glargine-yfgn 100 unit/mL (3 mL) Insulin Pen 35 unit subcut BIDCM Qty: 15 0RF insulin lispro [Humalog KwikPen Insulin] 100 unit/mL Insulin Pen 8 unit subcut BID Qty: 15 0RF Protocol: 5. Sliding Scale Insulin High Dosing Condition: 150-209 mg/dl = 3 units Condition: 210-259 mg/dl = 6 units Condition: 260-324 mg/dl = 9 units Condition: 325-374 mg/dl = 12 units Condition: 375-409 mg/dl = 14 units Condition: 410-449 mg/dl = 16 units Condition: Greater than 449 call physician Protocol Text: - Use for Total Daily Dose of Insulin 81-120 units - Very insulin resistant or septic patients HIGH DOSING ALGORITHM Rx Instructions: with breakfast and dinner metformin 500 mg tablet 500 mg PO BID Qty: 60 0RF (DME) pen needle, diabetic 31 gauge x 1/3 needle See Rx Instructions .Route Qty: 100 0RF Rx Instructions: As directed Disposition Disposition (needs filled in before D/C Order can be placed): Home, Self Care Charges/Coding Visit Charges Inpatient E&M: 12977 Disch Hosp >30min
[2022-09-19 12:15] LABS: Bedside Glucose 362 mg/dL (74-106)
[2022-09-19 13:24] LABS: Pathologist Review Reviewed
--- NOTE | 2022-09-19 13:39 | CASEMGMT ---
RN GARY NOTE: Pt being discharged home. Pt will be going home on insulin, which is new for pt. Nursing providing insulin admin education. RN GARY spoke w/RN, Bonnie, re: Pt Link. Bonnie met w/pt to discuss Pt Link and informed this RN GARY that pt did sign up for the program. Brandon LANGLEYN LINNEA CM
[2022-09-19 14:00] VITALS: O2SAT 100
[2022-09-19 15:24] VITALS: BP 135/86; PULSE 101; RESP 16; TEMP 37.1; O2SAT 100
--- NOTE | 2022-09-19 16:52 | NURSING ---
All charting and medication administration completed by Ignacia Hensley done under the supervision of this RN.
== END 2022-09-19 16:56 | disposition home or self-care (01) | DRG 639 ==
LOC: ED 19:16 → ICU 22:54 → PCU 09-18 16:04
PROVIDERS: Admitting Provider Hospitalist; Emergency Provider Emergency Medicine; Visit Provider Internal Medicine
DX: E11.10 Type 2 diabetes mellitus with ketoacidosis without coma (principal); F17.210 Nicotine dependence, cigarettes, uncomplicated; Z79.4 Long term (current) use of insulin
CPT/HCPCS: 36415; 71046; 80048; 80076; 81001; 82009; 82803; 82962; 83036; 83605; 83930; 85025; 85379; 87428; 87449; 93005; 97802; 99284; J7030; A4216; J0696

== ENCOUNTER → 2022-10-14 | Outpatient (CLI) | payer MEDICAID, SELFPAY ==
[2022-10-14 17:11] LABS: Amphetamine Urine VISTA NEGATIVE (<1000 ng/mL); Barbiturate Urine VISTA NEGATIVE (< 200 ng/mL); Benzodiazepine Urine VISTA NEGATIVE (< 200 ng/mL); Cocaine Urine VISTA NEGATIVE (< 300 ng/mL); Ecstacy Urine VISTA POSITIVE (< 500 ng/mL); Methadone Urine VISTA NEGATIVE (< 300 ng/mL); PCP Urine VISTA NEGATIVE (< 25 ng/mL); THC Urine VISTA NEGATIVE (< 50 ng/mL); Vista UDS pH Range 6
== END | disposition home or self-care (01) ==
LOC: LAB 16:43
PROVIDERS: Referring Provider Nurse Practitioner Psychiatric/Mental Health; Visit Provider Nurse Practitioner Psychiatric/Mental Health
DX: Z79.899 Other long term (current) drug therapy (principal)
CPT/HCPCS: 80307

== ENCOUNTER → 2022-11-15 | Outpatient (CLI) | payer MEDICAID, SELFPAY | END | disposition home or self-care (01) | PROVIDERS: Referring Provider Nurse Practitioner Psychiatric/Mental Health; Visit Provider Nurse Practitioner Psychiatric/Mental Health | DX: Z79.899 Other long term (current) drug therapy (principal) | CPT/HCPCS: 36415 ==